=== PATIENT | male | born 1980 | race Caucasian/White ===

== ENCOUNTER 2022-03-02 20:49 | Emergency (ER) | payer OTHER ==
[2022-03-03] MEDS ORDERED: PREDNISONE10 MG PO (00:40)
[2022-03-03] MEDS ORDERED: BENZONATATE100 MG PO (00:40)
[2022-03-03] MEDS ORDERED: ZITHROMAX250 MG PO (01:14)
[2022-03-03] MEDS ORDERED: AMOX TR-K CLV1 EAC4 PO (01:16)
== END 2022-03-03 01:30 | disposition home or self-care (01) ==
LOC: ER1 20:49
DX: J04.0 Acute laryngitis (principal); J98.8 Other specified respiratory disorders; F17.210 Nicotine dependence, cigarettes, uncomplicated; Z20.822 Contact with and (suspected) exposure to COVID-19
CPT/HCPCS: 0240U; 71045; 87081; 87880; 96372; 99283; J1100